=== PATIENT | female | born 1970 ===

== ENCOUNTER → 2024-08-12 | Day surgery (SDC) | payer OTHER ==
[2024-07-31 08:24] LABS: BASO % 0.4 % (0.1-1.2); EOS % 14.8 % (0.7-7.0); HEMATOCRIT 38.1 % (34.1-44.9); HEMOGLOBIN 12.7 g/dL (11.2-15.7); LYMPH # 1.54 (1.18-3.74); LYMPH % 22.7 % (19.3-53.1); MEAN CORPUSCULAR HEMOGLOBIN 30.2 pg (25.6-32.2); MONO # 0.45 (0.24-0.82); MONO % 6.6 % (4.7-12.5); NEUT # 3.74 (1.56-6.13); NEUT % 55.4 % (34.0-71.1); PLATELET COUNT 251 K/uL (163-369); RED BLOOD COUNT 4.21 M/uL (3.93-5.22); RED CELL DISTRIBUTION WIDTH 12.7 % (11.6-14.4)
[2024-07-31 08:36] VITALS: BP 127/80
[2024-07-31 08:43] LABS: PH,URINE 5.5 (5.0-8.0); URINE APPEARANCE Clear; URINE BILIRRUBIN Negative (NEGATIVE); URINE BLOOD Negative; URINE COLOR Yellow; URINE GLUCOSE Negative (NEGATIVE); URINE KETONE Trace (NEGATIVE); URINE LEUKOCYTE Trace; URINE NITRATE Negative; URINE PROTEIN Negative (NEGATIVE); URINE UROBILINOGEN 0.2 E.U./dl
[2024-07-31 08:44] LABS: URINE BACTERIA 99.1 uL (0.0-1933); URINE EPITHELIAL CELLS 21.6 uL (0.0-38.8); URINE WBC 16.2 uL (0.0-23.2)
[2024-07-31 08:48] LABS: INR 0.98; PARTIAL THROMBOPLASTIN TIME 29.1 SECONDS (22.0-34.0); PROTHROMBIN TIME 10.7 SECONDS (9.0-11.5)
[2024-07-31 09:03] LABS: URINE CAST 0.44 uL (0.0-1.40)
[2024-07-31 09:24] LABS: BILIRUBIN TOTAL 0.74 mg/dL (0.3-1.2); CALCIUM 9.4 mg/dL (8.5-10.1); CREATININE SERUM 0.78 mg/dL (0.55-1.02); GFR 76.96; GLOBULINA 3.5 G/DL (2.4-3.5); POTASSIUM 4.56 mEq/L (3.5-5.1); TOTAL PROTEIN 7.5 gm/dL (6.4-8.2)
[~2024-08-12] VITALS: Ht 165.1 cm; Wt 75.7 kg
[~2024-08-12] MED LIST: FAMOTIDINE/PF 20 MG/2 ML VIAL ONE; KETOROLAC TROMETHAMINE 30 MG VIAL IV STA; ONDANSETRON HCL 2 MG/ML VIAL IV ONE
== END | disposition home or self-care (01) ==
LOC: ADM 07-31 07:15 → CIR.AMB 08-05 07:15
PROVIDERS: ATTEND Obstetrics & Gynecology
DX: N84.0 Polyp of corpus uteri (principal); N95.0 Postmenopausal bleeding; D25.9 Leiomyoma of uterus, unspecified; Z88.2 Allergy status to sulfonamides